=== PATIENT | female | born 2000 | race African-American/Black ===

== ENCOUNTER → 2020-10-02 | Outpatient (CLI) | payer OTHER | END | disposition home or self-care (01) | LOC: PRENATAL 14:30 | PROVIDERS: ATTEND Obstetrics & Gynecology Maternal & Fetal Medicine | DX: O35.0XX1 Maternal care for (suspected) central nervous system malformation in fetus, fetus 1 (principal); O35.3XX1 Maternal care for (suspected) damage to fetus from viral disease in mother, fetus 1; O98.512 Other viral diseases complicating pregnancy, second trimester; Z36.89 Encounter for other specified antenatal screening; Z3A.22 22 weeks gestation of pregnancy ==

== ENCOUNTER 2022-07-02 09:20 | Emergency (ER) | payer OTHER ==
[~2022-07-02] VITALS: Ht 162.6 cm; Wt 84.4 kg
[2022-07-02] MEDS ORDERED: MUCINEX DM ER1 EAC1 PO (11:15)
[2022-07-02] MEDS ORDERED: FLONASE ALLERG9.9 ML NASAL (11:15)
[2022-07-02] MEDS ORDERED: ZITHROMAX500 MG PO (11:16)
== END 2022-07-02 11:27 | disposition home or self-care (01) ==
LOC: ER 09:20
DX: B34.9 Viral infection, unspecified (principal)

== ENCOUNTER 2024-02-28 19:27 | Emergency (ER) | payer OTHER ==
[~2024-02-28] VITALS: Ht 162.6 cm; Wt 61.2 kg
[~2024-02-28 19:27] MED LIST: FLONASE ALLERG9.9 ML NASAL; MUCINEX DM ER1 EAC1 PO; ZITHROMAX500 MG PO
[2024-02-28] MEDS ORDERED: levoFLOXacin IN DEXTROSE 5 % 5 MG/ML PIGGYBAG IV STA (20:48)
[2024-02-28 21:16] LABS: HEMATOCRIT 37.1 % (36.0-45.00); HEMOGLOBIN 12.6 g/dL (12.0-15.00); MEAN CELL VOLUME 88.3 fL (80.00-100.00); PLATELET COUNT 309 K/uL (150-450); RED CELL DISTRIBUTION WIDTH 13.9 % (11.5-14.5)
[2024-02-28] MEDS ORDERED: TRAMADOL HCL 50 MG TABLET PO STA (21:22)
[2024-02-28 21:41] LABS: PH,URINE 6.5 (5.0-8.0); URINE APPEARANCE Cloudy; URINE BILIRRUBIN Negative (NEGATIVE); URINE BLOOD Moderate; URINE COLOR Yellow; URINE GLUCOSE Negative (NEGATIVE); URINE LEUKOCYTE Moderate; URINE NITRATE Negative; URINE PROTEIN 30 (NEGATIVE)
[2024-02-28 21:45] LABS: URINE BACTERIA 2325.9 uL (0.0-1933); URINE EPITHELIAL CELLS 29.3 uL (0.0-38.8); URINE RBC 174.5 uL (0.0-20.8); URINE WBC 951.9 uL (0.0-23.2)
[2024-02-28 22:07] LABS: CALCIUM 9.3 mg/dL (8.5-10.1); CREATININE SERUM 0.68 mg/dL (0.55-1.02); GFR 105.42; POTASSIUM 4.22 mEq/L (3.5-5.1)
[2024-02-28] MEDS ORDERED: KETOROLAC TROMETHAMINE 15 MG VIAL IV STA (22:21)
[2024-02-28 22:25] LABS: URINE CAST 0.15 uL (0.0-1.40); URINE KETONE 40 (NEGATIVE)
[2024-02-28 22:27] LABS: URINE YEAST NEGATIVE /hpf
== END 2024-02-28 22:38 | disposition home or self-care (01) ==
LOC: ER 19:29
PROVIDERS: General Practice
DX: N39.0 Urinary tract infection, site not specified (principal)

== ENCOUNTER 2024-05-18 18:37 | Emergency (ER) | payer OTHER ==
[~2024-05-18] VITALS: Ht 162.6 cm; Wt 54.4 kg
[2024-05-18] MEDS ORDERED: BUTALB/ACETAMINOPHEN/CAFFEINE 1 TAB TABLET PO ONE ×2 (19:30→20:14)
[2024-05-18] MEDS ORDERED: ONDANSETRON HCL 2 MG/ML VIAL IM ONE (19:30)
[2024-05-18] MEDS ORDERED: FAMOtidine 10 MG/ML (4ML VIAL) IV PUSH ONE (19:30)
[2024-05-18] MEDS ORDERED: LORATADINE/PSEUDOEPHEDRINE 1 TAB TAB.SR.24H PO ONE (19:30)
[2024-05-18] MEDS ORDERED: FAMOTIDINE/PF 20 MG/2 ML VIAL ONE (20:15)
[2024-05-18] MEDS ORDERED: ONDANSETRON HCL 2 MG/ML VIAL ONE (20:15)
[2024-05-18] MEDS ORDERED: OSEL75CA PO (20:54)
[2024-05-18] MEDS ORDERED: PEPCID AC20 MG PO (20:54)
[2024-05-18 21:06] LABS: HEMATOCRIT 39.5 % (36.0-45.00); MEAN CELL VOLUME 89.7 fL (80.00-100.00); MEAN CORPUSCULAR HEMOGLOBIN 29.5 pg (27.00-32.0); MEAN CORPUSCULAR HGB CONC 32.9 g/dl (32.0-36.0); PLATELET COUNT 233 K/uL (150-450); RED CELL DISTRIBUTION WIDTH 14.2 % (11.5-14.5)
== END 2024-05-18 21:14 | disposition home or self-care (01) ==
LOC: ER 18:39
PROVIDERS: General Practice
DX: J10.1 Influenza due to other identified influenza virus with other respiratory manifestations (principal); Z20.822 Contact with and (suspected) exposure to COVID-19